=== PATIENT | female | born 1940 | race Caucasian/White ===

== ENCOUNTER 2018-11-25 11:15 | Emergency (ER) | payer OTHER ==
[~2018-11-25] VITALS: Ht 165.1 cm; Wt 68.0 kg
[2018-11-25] MEDS ORDERED: LEVOTHYROXINE88 MCG PO (11:41)
[2018-11-25] MEDS ORDERED: COZAAR25 MG PO (11:41)
[2018-11-25] MEDS ORDERED: SIMVASTATIN20 MG PO (11:41)
[2018-11-25] MEDS ORDERED: METOPROLOL SUCC25 MG PO (11:42)
[2018-11-25] MEDS ORDERED: ASPIRIN325 MG PO (11:42)
[2018-11-25] MEDS ORDERED: CALCIUM 600 +1 EACH PO (11:43)
[2018-11-25] MEDS ORDERED: VITAMIN D1000 UNIT PO (11:43)
[2018-11-25] MEDS ORDERED: CENTRUM SILVER1 EAC3 PO (11:43)
[2018-11-25] MEDS ORDERED: EVENING PRIMR1000 MG PO (11:43)
[2018-11-25] MEDS ORDERED: FISH OIL 1,0001 EAC2 NG (11:44)
[2018-11-25] MEDS ORDERED: MELATONIN1 MG PO (11:44)
[2018-11-25] MEDS ORDERED: PROBIOTIC1 EAC4 PO (11:44)
[2018-11-25] MEDS ORDERED: COCONUT OIL100 GM MISC (11:45)
[2018-11-25] MEDS ORDERED: MAGNESIUM CITR125 MG PO (11:45)
[2018-11-25] MEDS ORDERED: CURCUMIN1 GM MISC (11:45)
[2018-11-25] MEDS ORDERED: VITAMIN K240 MCG PO (11:46)
[2018-11-25] MEDS ORDERED: B COMPLEX1 EACH PO (11:46)
[2018-11-25] MEDS ORDERED: K-TAB ER20 MEQ PO (11:46)
[2018-11-25] MEDS ORDERED: COZAAR50 MG PO (13:09)
--- NOTE | 2018-11-26 16:54 | EKG ---
[facility] [address] [place], [place] [address] Signed Atrial fibrillation with premature ventricular or aberrantly conducted complexes Low voltage QRS Cannot rule out Anteroseptal infarct , age undetermined Abnormal ECG No previous ECGs available Confirmed by HAVEN MARROQUIN DO ([id number]) on 11/26/2018 4:54:31 PM Electronically Signed By: HAVEN MARROQUIN DO 11/26/18 1654 PATIENT NAME: BENITEZMIKE Electrocardiogram DATE OF : 44 PHYSICIAN: HAVEN MARROQUIN DO REPORT #: [id number] REPORT IS CONFIDENTIAL AND NOT TO BE RELEASED WITHOUT AUTHORIZATION
== END 2018-11-25 13:18 | disposition home or self-care (01) ==
LOC: ED 11:15
DX: I10 Essential (primary) hypertension (principal); K21.9 Gastro-esophageal reflux disease without esophagitis; I48.91 Unspecified atrial fibrillation; Z88.5 Allergy status to narcotic agent; Z88.8 Allergy status to other drugs, medicaments and biological substances; Z79.899 Other long term (current) drug therapy; Z79.82 Long term (current) use of aspirin
CPT/HCPCS: 71045; 80053; 84484; 85025; 93005; 93010; 99284-25

== ENCOUNTER 2022-10-10 04:11 | Emergency (ER) | payer MEDICARE, OTHER ==
[~2022-10-10] VITALS: Ht 165.1 cm; Wt 74.8 kg
[~2022-10-10 04:11] MED LIST: ASPIRIN325 MG PO; B COMPLEX1 EACH PO; CALCIUM 600 +1 EACH PO; CENTRUM SILVER1 EAC3 PO; COCONUT OIL100 GM MISC; COZAAR25 MG PO; COZAAR50 MG PO; CURCUMIN1 GM MISC; ELIQUIS5 MG PO; EVENING PRIMR1000 MG PO; FISH OIL 1,0001 EAC2 NG; K-TAB ER20 MEQ PO; LEVOTHYROXINE88 MCG PO; MAGNESIUM CITR125 MG PO; MELATONIN1 MG PO; METOPROLOL SUCC25 MG PO; PROBIOTIC1 EAC4 PO; SIMVASTATIN20 MG PO; VITAMIN D1000 UNIT PO; VITAMIN K240 MCG PO
== END 2022-10-10 05:32 | disposition home or self-care (01) ==
LOC: ED 04:11
DX: K91.840 Postprocedural hemorrhage of a digestive system organ or structure following a digestive system procedure (principal); I10 Essential (primary) hypertension; I48.91 Unspecified atrial fibrillation; E78.00 Pure hypercholesterolemia, unspecified; Z88.8 Allergy status to other drugs, medicaments and biological substances; Z88.5 Allergy status to narcotic agent; Z79.899 Other long term (current) drug therapy
CPT/HCPCS: 36415; 85025; 96374; 99283-25

== ENCOUNTER 2023-02-20 14:38 | Inpatient (IN) | payer MEDICARE, OTHER ==
[~2023-02-20] VITALS: Ht 165.1 cm; Wt 77.3 kg
--- NOTE | ~2023-02-20 | OR ---
[facility] [address], [place] [address] Draft DATE OF OPERATION: 02/28/2023 SURGEON: Jacqueline Sanderson MD JEWEL GAUGER: Maxim Winters D.O. PREOPERATIVE DIAGNOSIS: Vaginal vault prolapse. POSTOPERATIVE DIAGNOSIS: Vaginal vault prolapse. PROCEDURES: 1. Colpocleisis. 2. Cystoscopy. ANESTHESIA: Spinal with IV sedation. ESTIMATED BLOOD LOSS: 150 mL. DRAINS: Swanson catheter. INDICATIONS AND FINDINGS: The patient is an 82-year-old female, status post prior hysterectomy, who has developed vault prolapse. At this point, she desired colpocleisis. She is not sexually active and has no plans for this. At the time of surgery, she had a normal complete vault prolapse with the vault presenting at the introitus. DESCRIPTION OF PROCEDURE: The patient was prepped and draped in the dorsal lithotomy position. A weighted speculum was placed and a cheryl was made with the cautery at the bladder neck anteriorly such that no dissection would occur beyond that. A midline incision was made over the anterior vagina and the vaginal mucosa was from the underlying tissue with a combination of blunt and sharp dissection as far laterally as possible. The vaginal mucosa was then excised as far laterally as possible. The remaining pubo-vesicle fascia was closed with interrupted sutures of 0-Vicryl. Bleeding points were controlled with PATIENT NAME: MIKE BENITEZ OPERATIVE REPORT DATE OF : 44 REPORT #: [id number] PHYSICIAN: JACQUELINE SANDERSON MD PCP: VERONICA MAXWELL MD REPORT IS CONFIDENTIAL AND NOT TO BE RELEASED WITHOUT AUTHORIZATION [facility] [address], [place] [address] Draft [id number] sutures of 2-0 chromic. Following this, attention was directed posteriorly. A triangle of tissue was removed from the perineal body. The vaginal mucosa was then incised and undermined in the midline from the perineum to the vaginal apex. The vaginal mucosa was from the underlying tissue with a combination of blunt and sharp dissection as far laterally as possible. Following this, the vaginal mucosa was excised other than the band at the introitus. Bleeding points were controlled with [id number] sutures of the 2-0 chromic. The rectocele itself was reduced with interrupted sutures of 0-Vicryl and whatever remained of the perirectal fascial type tissue. Following this, it appeared that the great majority of the vaginal mucosa had been excised. The raw area was sprayed with Tisseel to aid in hemostasis. The vagina was then serially closed with purse-string sutures bringing the anterior to the posterior vagina, this was done to the introitus. Following this, the remaining vaginal mucosa both anteriorly and posteriorly was sewn together with a running suture of 2-0 Vicryl. The posterior fourchette was recreated with a running suture of 2-0 Vicryl. The posterior perineum had further dissection done on each side to allow for longer perineum. This was brought together with interrupted sutures of 0-Vicryl. The skin of the perineum was closed with subcuticular sutures of 2-0 Vicryl. Following this, cystoscopy was done. There was no evidence of any bladder injury. Fluorescein had been given and there was free flow of urine from each of the ureteral orifices. Rectal examination was also done at the conclusion of the procedure. Swanson catheter was replaced after draining the bladder, and she was taken to the recovery room in good condition. All sponge and needle counts were correct. Jacqueline Sanderson MD PJMatt/MODL /[id number] Copies: ~ PATIENT NAME: MIKE BENITEZ OPERATIVE REPORT DATE OF : 44 REPORT #: [id number] PHYSICIAN: JACQUELINE SANDERSON MD PCP: VERONICA MAXWELL MD REPORT IS CONFIDENTIAL AND NOT TO BE RELEASED WITHOUT AUTHORIZATION
--- OUTSIDE RECORDS SUMMARY | ~2023-02-20 | XMS | Continuity of Care Document ---
Demographics + + + | Address | [address] | | | [place] [address] | + + + | Preferred Language | Unknown | + + + | Marital Status | | + + + | Lutheran Affiliation | Unknown | + + + | Race | White | + + + | Ethnic Group | Not or | + + + Author + + + | Author | [facility] | + + + | Organization | [facility] | + + + | Address | [address] | | | [place] [address] | + + + | Phone | | + + + Care Team Providers + + + + | Care Managing Principal Name | Role | Phone | + + + + Unavailable | Unavailable | + + + + Unavailable | Unavailable | + + + + Unavailable | Unavailable | + + + + Allergies and Intolerances + + + + + + | date | description | facility | reaction | severity | + + + + + + | (no date) | Celecoxib | [facility] | (no reaction) | (no severity) | | [facility] | | | + + + + + + | (no date) | Celecoxib | [facility] | (no reaction) | (no severity) | | [facility] | | | + + + + + + | (no date) | Codeine | [facility] | (no reaction) | (no severity) | | [facility] | | | + + + + + + | (no date) | Procaine | [facility] | (no reaction) | (no severity) | | [facility] | | | + + + + + + | (no date) | Codeine | [facility] | (no reaction) | (no severity) | | [facility] | | | + + + + + + | (no date) | Vomiting | [facility] | (no reaction) | (no severity) | | [facility] | | | + + + + + + | (no date) | Procaine | [facility] | (no reaction) | (no severity) | | [facility] | | | + + + + + + | (no date) | Procaine | [facility] | (no reaction) | (no severity) | | | [facility] | | | + + + + + + | (no date) | codeine | [facility] | (no reaction) | (no severity) | + + + + + + | (no date) | procaine | [facility] | (no reaction) | (no severity) | + + + + + + | (no date) | celecoxib | [facility] | (no reaction) | (no severity) | + + + + + + | (no date) | Celecoxib | [facility] | (no reaction) | (no severity) | | [facility] | | | + + + + + + | (no date) | Codeine | [facility] | (no reaction) | (no severity) | | | [facility] | | | + + + + + + Encounters No information. Functional Status No information. Immunizations No information. Medications + + + + | date | description | facility | + + + + | 2022-08-17 00:00 | APIXABAN | [facility] | + + + + | 2022-10-10 00:00 | APIXABAN | [facility] | + + + + | 2022-08-17 00:00 | POTASSIUM CHLORIDE | [facility] | + + + + | 2022-10-10 00:00 | POTASSIUM CHLORIDE | [facility] | + + + + | 2022-08-17 00:00 | Magnesium Citrate | [facility] | + + + + | 2022-10-10 00:00 | Magnesium Citrate | [facility] | + + + + | 2022-08-17 00:00 | CHOLECALCIFEROL (VITAMIN | [facility] | | | D3) | | + + + + | 2022-10-10 00:00 | CHOLECALCIFEROL (VITAMIN | [facility] | | | D3) | | + + + + | 2022-08-17 00:00 | SIMVASTATIN | [facility] | + + + + | 2022-10-10 00:00 | SIMVASTATIN | [facility] | + + + + | 2022-08-17 00:00 | CALCIUM CARBONATE/VITAMIN | [facility] | | | D3 | | + + + + | 2022-10-10 00:00 | CALCIUM CARBONATE/VITAMIN | [facility] | | | D3 | | + + + + | 2022-08-17 00:00 | METOPROLOL SUCCINATE | [facility] | + + + + | 2022-10-10 00:00 | METOPROLOL SUCCINATE | [facility] | + + + + | 2022-08-17 00:00 | LEVOTHYROXINE SODIUM | [facility] | + + + + | 2022-10-10 00:00 | LEVOTHYROXINE SODIUM | [facility] | + + + + | 2018-11-25 00:00 | LOSARTAN POTASSIUM | [facility] | + + + + | 2018-11-25 00:00 | LOSARTAN POTASSIUM | [facility] | + + + + Problems + + + + | date | description | facility | + + + + | 2022-08-17 00:00 | Hypertension | [facility] | + + + + | 2022-08-17 00:00 | Hypertension | [facility] | + + + + | 2022-08-17 00:00 | Episode of confusion | [facility] | + + + + | 2022-08-17 00:00 | Episode of confusion | [facility] | + + + + | 2022-08-17 18:05 | Essential (primary) | [facility] | | | hypertension | | + + + + | 2022-08-17 18:05 | UNSPECIFIED ATRIAL | [facility] | | | FIBRILLATION | | + + + + | 2022-08-17 18:05 | DISORIENTATION, | [facility] | | | UNSPECIFIED | | + + + + | 2022-08-17 18:05 | Dizziness and giddiness | [facility] | + + + + | 2022-08-17 18:05 | SENIOR LIVING (CURRENT) USE OF | [facility] | | | ANTICOAGULANTS | | + + + + | 2022-08-17 18:05 | 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) | [facility] | | | DRUG THERAPY | | + + + + | 2022-08-17 18:05 | ALLERGY STATUS TO NARCOTIC | [facility] | | | AGENT STATUS | | + + + + | 2022-08-17 18:05 | ALLERGY STATUS TO OTH | [facility] | | | DRUG/MEDS/BIOL SUBST STATUS | | | | | | + + + + | 2022-10-10 00:00 | Surgical wound hemorrhage | [facility] | | | after dental procedure | | + + + + | 2022-10-10 04:12 | PURE HYPERCHOLESTEROLEMIA, | [facility] | | | UNSPECIFIED | | + + + + | 2022-10-10 04:12 | Essential (primary) | [facility] | | | hypertension | | + + + + | 2022-10-10 04:12 | UNSPECIFIED ATRIAL | [facility] | | | FIBRILLATION | | + + + + | 2022-10-10 04:12 | OTHER SPECIFIED DISORDERS | [facility] | | | OF TEETH AND SUPPORTING | | | | STRUCTURES | | + + + + | 2022-10-10 04:12 | POSTPROC HEMOR OF A DGSTV | [facility] | | | SYS ORG FOL A DGSTV SYS | | + + + + | 2022-10-10 04:12 | OTHER SENIOR LIVING (CURRENT) | [facility] | | | DRUG THERAPY | | + + + + | 2022-10-10 04:12 | ALLERGY STATUS TO NARCOTIC | [facility] | | | AGENT STATUS | | + + + + | 2022-10-10 04:12 | ALLERGY STATUS TO OTH | [facility] | | | DRUG/MEDS/BIOL SUBST STATUS | | | | | | + + + + | 2022-12-26 10:10 | ENCNTR SCREEN MAMMOGRAM | [facility] | | | FOR MALIGNANT NEOPLASM OF | | | | BREAST | | + + + + | 2023-02-21 16:05 | PROLAPSE OF VAGINAL VAULT | [facility] | | | AFTER HYSTERECTOMY | | + + + + | 2023-02-28 07:30 | MIXED INCONTINENCE | [facility] | + + + + | 2023-02-28 07:30 | PROLAPSE OF VAGINAL VAULT | [facility] | | | AFTER HYSTEREC | | + + + + | 2023-02-28 07:30 | URGENCY OF URINATION | [facility] | + + + + Procedures No information. Results/Labs +--------+--------+ +---------+--------+---------+ | test | date | facility | value | unit | notes | +--------+--------+ +---------+--------+---------+ + + | Result panel 1 | + + + + + +-------+ + + | | 2022-08-17 | [facility] | 6.9 | (missing) | (missing) | | (unavailable | 18:12:08 [facility] | | | | + + + +-------+ + + + + | Result panel 2 | + + + + + +--------+ + + | | 2022-08-17 | [facility] | 4.22 | (missing) | (missing) | | (unavailable | 18:12:08 [facility] | | | | + + + +--------+ + + + + | Result panel 3 | + + + + + +--------+ + + | | 2022-08-17 | [facility] | 13.8 | (missing) | (missing) | | (unavailable | 18:12:08 [facility] | | | | + + + +--------+ + + + + | Result panel 4 | + + + + + +--------+ + + | | 2022-08-17 | [facility] | 41.2 | (missing) | (missing) | | (unavailable | 18:12:08 [facility] | | | | + + + +--------+ + + + + | Result panel 5 | + + + + + +--------+ + + | | 2022-08-17 | [facility] | 97.8 | (missing) | (missing) | | (unavailable | 18:12:08 [facility] | | | | + + + +--------+ + + + + | Result panel 6 | + + + + + +--------+ + + | | 2022-08-17 | [facility] | 32.6 | (missing) | (missing) | | (unavailable | 18:12:08 [facility] | | | | + + + +--------+ + + + + | Result panel 7 | + + + + + +--------+ + + | | 2022-08-17 | [facility] | 33.4 | (missing) | (missing) | | (unavailable | 18:12:08 [facility] | | | | + + + +--------+ + + + + | Result panel 8 | + + + + + +--------+ + + | | 2022-08-17 | [facility] | 13.0 | (missing) | (missing) | | (unavailable | 18:12:08 [facility] | | | | + + + +--------+ + + + + | Result panel 9 | + + + + + +-------+ + + | | 2022-08-17 | [facility] | 162 | (missing) | (missing) | | (unavailable | [facility]:12:08 [facility] | | | | + + + +-------+ + + + + | Result panel 10 | + + + + + +--------+ + + | | 2022-08-17 | [facility] | 63.1 | (missing) | (missing) | | (unavailable | 18:12:08 [facility] | | | | + + + +--------+ + + + + | Result panel 11 | + + + + + +--------+ + + | | 2022-08-17 | [facility] | 22.0 | (missing) | (missing) | | (unavailable | 18:12:08 [facility] | | | | + + + +--------+ + + + + | Result panel 12 | + + + + + +--------+ + + | | 2022-08-17 | [facility] | 10.5 | (missing) | (missing) | | (unavailable | 18:12:08 [facility] | | | | + + + +--------+ + + + + | Result panel 13 | + + + + + +-------+ + + | | 2022-08-17 | [facility] | 3.2 | (missing) | (missing) | | (unavailable | 18:12:08 [facility] | | | | + + + +-------+ + + + + | Result panel 14 | + + + + + +-------+ + + | | 2022-08-17 | [facility] | 1.2 | (missing) | (missing) | | (unavailable | 18:12:08 [facility] | | | | + + + +-------+ + + + + | Result panel 15 | + + + + + +--------+ + + | | 2022-08-17 | [facility] | 15.5 | (missing) | (missing) | | (unavailable | 18:12:08 [facility] | | | | + + + +--------+ + + + + | Result panel 16 | + + + + + +--------+ + + | | 2022-08-17 | [facility] | 1.29 | (missing) | (missing) | | (unavailable | 18:12:08 [facility] | | | | + + + +--------+ + + + + | Result panel 17 | + + + + + +-------+---------+ + | | 2022-08-17 | [facility] | 100 | mg/dL | (missing) | | (unavailable | 18:12:08 [facility] | | | | + + + +-------+---------+ + + + | Result panel 18 | + + + + + +------+---------+ + | | 2022-08-17 | [facility] | 20 | mg/dL | (missing) | | (unavailable | 18:12:08 [facility] | | | | + + + +------+---------+ + + + | Result panel 19 | + + + + + +--------+---------+ + | | 2022-08-17 | [facility] | 1.10 | mg/dL | (missing) | | (unavailable | 18:12:08 [facility] | | | | + + + +--------+---------+ + + + | Result panel 20 | + + + + + +------+ + + | | 2022-08-17 | [facility] | 51 | (missing) | (missing) | | (unavailable | 18::08 | [facility] | | | | + + + +------+ + + + + | Result panel 21 | + + + + + +---------+ + + | | 2022-08-17 | [facility] | 18.18 | (missing) | (missing) | | (unavailable | 18:12:08 [facility] | | | | + + + +---------+ + + + + | Result panel 22 | + + + + + +-------+ + + | | 2022-08-17 | [facility] | 130 | (missing) | (missing) | | (unavailable | 18:12:08 [facility] | | | | + + + +-------+ + + + + | Result panel 23 | + + + + + +-------+ + + | | 2022-08-17 | [facility] | 4.4 | (missing) | (missing) | | (unavailable | 18:12:08 [facility] | | | | + + + +-------+ + + + + | Result panel 24 | + + + + + +------+ + + | | 2022-08-17 | [facility] | 96 | (missing) | (missing) | | (unavailable | 18:12:08 [facility] | | | | + + + +------+ + + + + | Result panel 25 | + + + + + +------+ + + | | 2022-08-17 | [facility] | 29 | (missing) | (missing) | | (unavailable | 18:12:08 [facility] | | | | + + + +------+ + + + + | Result panel 26 | + + + + + +-------+ + + | | 2022-08-17 | [facility] | 9.4 | (missing) | (missing) | | (unavailable | 18:12:08 [facility] | | | | + + + +-------+ + + + + | Result panel 27 | + + + + + +-------+---------+ + | | 2022-08-17 | [facility] | 9.7 | mg/dL | (missing) | | (unavailable | 18:12:08 [facility] | | | | + + + +-------+---------+ + + + | Result panel 28 | + + + + + +-------+ + + | | 2022-08-17 | [facility] | 7.5 | (missing) | (missing) | | (unavailable | 18:12:08 [facility] | | | | + + + +-------+ + + + + | Result panel 29 | + + + + + +-------+ + + | | 2022-08-17 | [facility] | 4.1 | (missing) | (missing) | | (unavailable | 18:12:08 [facility] | | | | + + + +-------+ + + + + | Result panel 30 | + + + + + +-------+ + + | | 2022-08-17 | [facility] | 3.4 | (missing) | (missing) | | (unavailable | 18:12:08 [facility] | | | | + + + +-------+ + + + + | Result panel 31 | + + + + + +--------+ + + | | 2022-08-17 | [facility] | 1.21 | (missing) | (missing) | | (unavailable | 18::08 | [facility] | | | | + + + +--------+ + + + + | Result panel 32 | + + + + + +-------+ + + | | 2022-08-17 | [facility] | 1.6 | (missing) | (missing) | | (unavailable | 18:12:08 [facility] | | | | + + + +-------+ + + + + | Result panel 33 | + + + + + +------+ + + | | 2022-08-17 | [facility] | 40 | (missing) | (missing) | | (unavailable | 18:12:08 [facility] | | | | + + + +------+ + + + + | Result panel 34 | + + + + + +------+ + + | | 2022-08-17 | [facility] | 43 | (missing) | (missing) | | (unavailable | 18:12:08 [facility] | | | | + + + +------+ + + + + | Result panel 35 | + + + + + +-------+ + + | | 2022-08-17 | [facility] | 116 | (missing) | (missing) | | (unavailable | 18:12:08 [facility] | | | | + + + +-------+ + + + + | Result panel 36 | + + + + + + + + + | | 2022-08-17 | [facility] | YELLOW | (missing) | (missing) | | (unavailable | 18:56:08 [facility] | | | | + + + + + + + + + | Result panel 37 | + + + + + +---------+ + + | | 2022-08-17 | [facility] | CLEAR | (missing) | (missing) | | (unavailable | 18:56:08 [facility] | | | | + + + +---------+ + + + + | Result panel 38 | + + + + + + + + + | | 2022-08-17 | [facility] | NEGATIVE | (missing) | (missing) | | (unavailable | 18:56:08 [facility] | | | | + + + + + + + + + | Result panel 39 | + + + + + + + + + | | 2022-08-17 | [facility] | NEGATIVE | (missing) | (missing) | | (unavailable | 18[facility]56:08 [facility] | | | | + + + + + + + + + | Result panel 40 | + + + + + + + + + | | 2022-08-17 | [facility] | NEGATIVE | (missing) | (missing) | | (unavailable | 18[facility]56:08 [facility] | | | | + + + + + + + + + | Result panel 41 | + + + + + +---------+ + + | | 2022-08-17 | [facility] | 1.015 | (missing) | (missing) | | (unavailable | 18:56:08 [facility] | | | | + + + +---------+ + + + + | Result panel 42 | + + + + + + + + + | | 2022-08-17 | [facility] | NEGATIVE | (missing) | (missing) | | (unavailable | 18:56:08 [facility] | | | | + + + + + + + + + | Result panel 43 | + + + + + +-------+ + + | | 2022-08-17 | [facility] | 6.0 | (missing) | (missing) | | (unavailable | 18:56:08 [facility] | | | | + + + +-------+ + + + + | Result panel 44 | + + + + + + + + + | | 2022-08-17 | [facility] | NEGATIVE | (missing) | (missing) | | (unavailable | 18:56:08 [facility] | | | | + + + + + + + + + | Result panel 45 | + + + + + + + + + | | 2022-08-17 | [facility] | NORMAL | (missing) | (missing) | | (unavailable | 18:56:08 [facility] | | | | + + + + + + + + + | Result panel 46 | + + + + + + + + + | | 2022-08-17 | [facility] | NEGATIVE | (missing) | (missing) | | (unavailable | 18:56:08 [facility] | | | | + + + + + + + + + | Result panel 47 | + + + + + +---------+ + + | | 2022-08-17 | [facility] | TRACE | (missing) | (missing) | | (unavailable | 18:56:08 [facility] | | | | + + + +---------+ + + + + | Result panel 48 | + + + + + +-------+ + + | | 2022-08-17 | [facility] | 0-1 | (missing) | (missing) | | (unavailable | 18:56:08 [facility] | | | | + + + +-------+ + + + + | Result panel 49 | + + + + + +-------+ + + | | 2022-08-17 | [facility] | 4-6 | (missing) | (missing) | | (unavailable | 18:56:08 [facility] | | | | + + + +-------+ + + + + | Result panel 50 | + + + + + +-----+ + + | | 2022-08-17 | [facility] | 0 | (missing) | (missing) | | (unavailable | 18:56:08 [facility] | | | | + + + +-----+ + + + + | Result panel 51 | + + + + + +------+ + + | | 2022-08-17 | [facility] | No | (missing) | (missing) | | (unavailable | 18:56:08 [facility] | | | | + + + +------+ + + + + | Result panel 52 | + + + + + + + + + | | 2022-08-17 | [facility] | CLEAN CATCH | (missing) | (missing) | | (unavailable | 18:56:08 [facility] | | | | + + + + + + + + + | Result panel 53 | + + + + + +-------+ + + | | 2022-10-10 | [facility] | 6.1 | (missing) | (missing) | | (unavailable | 04:26:08 [facility] | | | | + + + +-------+ + + + + | Result panel 54 | + + + + + +--------+ + + | | 2022-10-10 | [facility] | 63.5 | (missing) | (missing) | | (unavailable | 04:26:08 [facility] | | | | + + + +--------+ + + + + | Result panel 55 | + + + + + +--------+ + + | | 2022-10-10 | [facility] | 21.7 | (missing) | (missing) | | (unavailable | 04:26:08 [facility] | | | | + + + +--------+ + + + + | Result panel 56 | + + + + + +-------+ + + | | 2022-10-10 | [facility] | 8.7 | (missing) | (missing) | | (unavailable | 04:26:08 [facility] | | | | + + + +-------+ + + + + | Result panel 57 | + + + + + +-------+ + + | | 2022-10-10 | [facility] | 5.3 | (missing) | (missing) | | (unavailable | 04:26:08 [facility] | | | | + + + +-------+ + + + + | Result panel 58 | + + + + + +-------+ + + | | 2022-10-10 | [facility] | 0.8 | (missing) | (missing) | | (unavailable | 04:26:08 [facility] | | | | + + + +-------+ + + + + | Result panel 59 | + + + + + +--------+ + + | | 2022-10-10 | [facility] | 4.16 | (missing) | (missing) | | (unavailable | 04:26:08 [facility] | | | | + + + +--------+ + + + + | Result panel 60 | + + + + + +--------+ + + | | 2022-10-10 | [facility] | 13.7 | (missing) | (missing) | | (unavailable | 04:26:08 [facility] | | | | + + + +--------+ + + + + | Result panel 61 | + + + + + +--------+ + + | | 2022-10-10 | [facility] | 40.3 | (missing) | (missing) | | (unavailable | 04:26:08 [facility] | | | | + + + +--------+ + + + + | Result panel 62 | + + + + + +--------+ + + | | 2022-10-10 | [facility] | 96.8 | (missing) | (missing) | | (unavailable | 04:26:08 [facility] | | | | + + + +--------+ + + + + | Result panel 63 | + + + + + +--------+ + + | | 2022-10-10 | [facility] | 33.0 | (missing) | (missing) | | (unavailable | 04:26:08 [facility] | | | | + + + +--------+ + + + + | Result panel 64 | + + + + + +--------+ + + | | 2022-10-10 | [facility] | 34.1 | (missing) | (missing) | | (unavailable | 04:26:08 [facility] | | | | + + + +--------+ + + + + | Result panel 65 | + + + + + +--------+ + + | | 2022-10-10 | [facility] | 13.4 | (missing) | (missing) | | (unavailable | 04[facility]26:08 [facility] | | | | + + + +--------+ + + + + | Result panel 66 | + + + + + +-------+ + + | | 2022-10-10 | [facility] | 183 | (missing) | (missing) | | (unavailable | 04[facility]26:08 [facility] | | | | + + + +-------+ + + Social History No information. Vital Signs + + + +---------+ | date | measurement | value | units | + + + +---------+ | 2022-08-17 00:00 | BMI | 26.6 | kg/m2 | + + + +---------+ | 2022-08-17 00:00 | BP_diastolic | 97 | mmHg | + + + +---------+ | 2022-08-17 00:00 | BP_systolic | 180 | mmHg | + + + +---------+ | 2022-08-17 00:00 | heart_rate | 64 | /min | + + + +---------+ | 2022-08-17 00:00 | height_metric | 165.1 | cm | + + + +---------+ | 2022-08-17 00:00 | height_standard | 65 | in | + + + +---------+ | 2022-08-17 00:00 | o2_saturation | 97 | % | + + + +---------+ | 2022-08-17 00:00 | respiration_rate | 17 | /min | + + + +---------+ | 2022-08-17 00:00 | temperature_metric | 36.5 | C | | | | | | + + + +---------+ | 2022-08-17 00:00 | | 97.7 | F | | | temperature_standar | | | | | d | | | + + + +---------+ | 2022-08-17 00:00 | weight_metric | 72.57 | kg | + + + +---------+ | 2022-08-17 00:00 | weight_standard | 159.99 | lb | + + + +---------+ | 2022-08-17 00:00 | weight_standard | 160 | lb | + + + +---------+ | 2022-10-10 00:00 | BMI | 27.5 | kg/m2 | + + + +---------+ | 2022-10-10 00:00 | BP_diastolic | 76 | mmHg | + + + +---------+ | 2022-10-10 00:00 | BP_systolic | 158 | mmHg | + + + +---------+ | 2022-10-10 00:00 | heart_rate | 60 | /min | + + + +---------+ | 2022-10-10 00:00 | height_metric | 165.1 | cm | + + + +---------+ | 2022-10-10 00:00 | height_standard | 65 | in | + + + +---------+ | 2022-10-10 00:00 | o2_saturation | 98 | % | + + + +---------+ | 2022-10-10 00:00 | respiration_rate | 20 | /min | + + + +---------+ | 2022-10-10 00:00 | temperature_metric | 36.22 | C | | | | | | + + + +---------+ | 2022-10-10 00:00 | | 97.2 | F | | | temperature_standar | | | | | d | | | + + + +---------+ | 2022-10-10 00:00 | weight_metric | 74.84 | kg | + + + +---------+ | 2022-10-10 00:00 | weight_standard | 164.99 | lb | + + + +---------+ | 2022-10-10 00:00 | weight_standard | 165 | lb | + + + +---------+"
[~2023-02-20 14:38] MED LIST changes: +APETEX LIQ790 MG/15 PO; -B COMPLEX1 EACH PO; -CALCIUM 600 +1 EACH PO; +CALCIUM CARBON600 M1 PO; -CURCUMIN1 GM MISC; +CURCUMIN1 GM PO; -FISH OIL 1,0001 EAC2 NG; +FISH OIL 1,0001 EAC5 PO; -VITAMIN D1000 UNIT PO; +VITAMIN D325 MCG PO
[2023-02-21 16:46] VITALS: BP 167/82
[2023-02-21] MEDS ORDERED: AMLODIPINE BES2.5 MG PO (16:46)
[2023-02-28] VITALS (7 sets, daily range): BP systolic 112–148; BP diastolic 43–76
--- NOTE | 2023-02-28 07:58 | NUR ---
PATIENT EYEGLASSES PLACED IN EYEGLASS CASE WITH PATIENT STICKER ATTACHED BEFORE LEAVING DAY SURGERY. CASE PLACED IN PATIENT'S PURSE AND LEFT IN DAY SURGERY ROOM 12 WITH PATIENT'S OTHER BELONGINGS.
--- NOTE | 2023-02-28 10:22 | NUR ---
02/28/23 1022 Trisha Brady 1000 PT ARRIVED IN PACU AWAKE WITH NO C/O'S. EDAWRDS CATHETER IN PLACE WITH NEON YELLOW URINE PRESENT. 1010 SATS DROPPED TO 88% ON RA. ENCOURAGE COUGH, DEEP BREATHING WITH NO CHANGE. O2 @ 2L VIA NC PLACED. SATS 95%. 1020 PT VISITING WITH STAFF. MOVING FEET.
--- NOTE | 2023-02-28 10:38 | NUR ---
PATIENT BROUGHT TO MED SURG FROM PACU. PATIENT CURRENTLY AWAKE, A&O, PAIN CONTROLLED AT 08/22. IS PROVIDER. PATIENT IS BY HERSELF. EDWARDS IN AND BRIGHT YELLOW OUTPUT. PATIENT HAS 20G IN LEFT HAND SL. PATIENT HAS SCDS ON AND RUNNING, TABLE OVER BY PATIENT, WITH TV REMOTE WATER AND KLENEX. PATIENT ON REGULAR DIET AND GIVEN VANILLA PUDDING. VITALS TAKEN. PT WOULD REALLY LIKE TO TRY TO CONTROL PAIN WITH TYLENOL ONLY.
--- NOTE | 2023-02-28 11:42 | NUR ---
PATIENT RESTING IN BED BUT WAKES UP WHEN THIS NURSE WALKS IN. PAIN STILL CONTROLLED AT 08/22. PATIENT STATES SHE IS COMFORTABLE, WARM, STOMACH IS TOLERATING PUDDING WELL. VITALS TAKEN. DENIES CARES AT THIS TIME. CALL LIGHT WITHIN REACH. BED IN LOW POSITION.
--- NOTE | 2023-02-28 12:15 | NUR ---
PATIENT HAS COUSIN INTO VISIT. WARM BLANKET GIVEN. PATIENT IS READY TO EAT LUNCH. DENIES INCREASE IN PAIN. PILLOW PLACED UNDER BOTH KNEES. DENIES NAUSEA.
--- NOTE | 2023-02-28 14:11 | NUR ---
PATIENT IS VISITING WITH FRIENDS, SURGERY SCHEDULING COORDINATOR WILL RETURN LATER TO ASSESS THE PATIENT'S DISCHARGE NEEDS.
--- NOTE | 2023-02-28 14:26 | NUR ---
PATIENT SITTING UP IN BED. SHE WAS ABLE TO EAT LUNCH AND DOING WELL. PATIENT GIVEN SCHEDULED TYLENOL. CASE MANAGEMENT INTO TALK TO PATIENT.
--- NOTE | 2023-02-28 14:51 | NUR ---
SPOKE TO PATIENT ABOUT THE DISCHARGE PLAN. PATIENT WANTS TO DISCHARGE HOME TO HER DOUBLE-WIDE TRAILOR. PATIENT HAS A SUPPORTIVE FAMILY AND FRIENDS TO HELP NEEDED. PATIENT DOES NOT HAVE ANY DME. PATIENT IS ABLE TO DO HER OWN ADLS.PATIENT DRIVES HER OWN CAR AND CAN AFFORD FOOD AND HOUSING. PATIENT FEELS SAFE HOME ALONE IN HER TRAILOR.PATIENT DOES NOT WANT SNF OR SENIOR LIVING PLACEMENT. PATIENT DOES NOT NEED CASE MANAGMENT AT THIS TIME. CM WILL MONITOR THE PATIENT'S DISCHARGE PLAN AND WILL BE AVAIABLE TO HELP WITH NEEDED CHANGES.
[2023-02-28] MEDS ORDERED: LEVOTHYROXINE75 MCG PO (16:01)
[2023-02-28] MEDS ORDERED: METOPROLOL TART25 MG PO (16:02)
[2023-02-28] MEDS ORDERED: LOSARTAN POTASS50 MG PO (16:03)
--- NOTE | 2023-02-28 17:09 | NUR ---
PATIENT SITTING UP AND EATING DINNER. DENIES ANY PAIN AT THIS TIME. PATIENT IS HAPPY AND DOING WELL. PATIENT HAS HAD VISITORS OFF AND ON THROUGHOUT THE DAY. CALL LIGHT WITHIN REACH. PATIENT WOULD LIKE TO KNOW IF SHE CAN TAKE HER LACTAID SHE WOULD LIKE ICE CREAM WITH DINNER. DENIES ANY OTHER CARES AT THIS TIME.
--- NOTE | 2023-02-28 18:35 | NUR ---
PATIENT SITTING UP IN BED VISITING WITH FAMILY. PATIENT GIVEN FRESH WATER. DENIES PAIN AT THIS TIME. EDWARDS WORKING, NO DISCOMFORT. CALL LIGHT WITHIN REACH. PATIENT THANKFUL FOR HER CARE TODAY.
--- NOTE | 2023-02-28 19:40 | NUR ---
Pt is resting, calm , minimal pain, ontiveros in place. No other complains.
[2023-03-01 02:22] VITALS: BP 107/50
--- NOTE | 2023-03-01 06:22 | NUR ---
Ambulated with pt around the unit. Removed rama, pt requested stool softners early this am as she dint want to take it last night.
--- NOTE | 2023-03-01 06:22 | NUR ---
ENTERED PT ROOM TO ASSIST SILVIA RN, WITH PT NEEDS. PT AMBULATED WELL IN HALLWAY. WAS PRESENT DURING EDWARDS REMOVAL. SILVIA IN TO DO MEDICATION ADMINISTRATION.
[2023-03-01 06:23] VITALS: BP 139/62
--- NOTE | 2023-03-01 06:28 | NUR ---
Pt notified me that pt passed gas.
--- NOTE | 2023-03-01 07:31 | NUR ---
REPORT RECEIVED FROM ROHAN VEGA. PT RESTING IN BED, AWAKE AND ALERT. PT REPORTS / PAIN THAT IS WELL CONTROLLED. PT REPORTS SHE HAS HAD A BOWEL MOVEMENT BUT HAS NOT YET VOIDED. PT DRINKING FLUIDS. PT UPDATED ON PLAN OF CARE AND STATES HER QUESTIONS HAVE BEEN ANSWERED. NO ADDITIONAL REQUESTS OR COMPLAINTS. CALL LIGHT WITHIN REACH. BED RAILS UP. OXYGEN SATURATIONS 97% ON ROOM AIR.
--- NOTE | 2023-03-01 08:36 | NUR ---
MORNING ASSESSMENT AND MEDICATION DUE. PT RESTING IN BED, HEAD OF BED ELEVATED TO 53 DEGREES, PT EATING BREAKFAST. PT REPORTS SHE SAW DR. ARANA THIS MORNING, PT VERBALIZES UNDERSTANDING OF PLAN OF CARE AND REPEATS BACK INSTRUCTIONS FROM MD. IV SITE REMAINS WNL, NO S/S OF PHLEBITIS PRESENT. PT ALERT AND OREINTED TO ALL. LUNG SOUNDS CLEAR. PT TOLERATING ROOM AIR WITH OXYGEN SATURATIONS OVER 94% ON ROOM AIR. HEART TONES REGULAR. PT DENIES PAIN AND NAUSEA. HEART TONES PACED AND REGULAR. MEDICAITON GIVEN. BLE EDEMA RESOLVED. SPINAL RESOLVED. ABDOMEN SOFT AND NON TEDNER. BOWEL TONES ACTIVE. PT REPORTS SHE IS PASSING GAS. EDWARDS CATHETER NO LONGER IN PLACE, DC'D BY HAMMER OPERATOR. PT REMAINS DUE TO VOID. BLADD SCANNED, 134ML SEEN IN BLADDER BY SCAN AT THIS TIME. PO FLUIDS ENCOURAGED. SMALL AMOUNT OF RED DRAINAGE SEEN ON KIAH PAD. PT DENIES ADDITIONAL REQUESTS OR COMPLAINTS. EATING BREAKFAST. CALL LIGHT WITHIN REACH. BED RAILS UP.
--- NOTE | 2023-03-01 09:11 | NUR ---
MEDICATION DUE. GIVEN ORDERED. PT FINISHED WITH BREAKFAST. VITAL SIGNS STABLE. PT CONTIUES TO DENY PAIN AND NAUSEA. NO ADDITIONAL NEEDS AT THIS TIME. CALL LIGHT WITHIN REACH. BED RAILS UP.
[2023-03-01 09:12] VITALS: BP 151/73
--- NOTE | 2023-03-01 09:40 | NUR ---
PT CALLED FROM RESTROOM AFTER VOIDING. THIS CNA2 PERFORMED POST-RESIDULE SCAN ON BLADDER, COULD NOT FIND ANY URINE IN SCAN. PT STATED " I HAD QUITE A BIT OUT AND I ALSO HAD A GOOD SIZE BM." THERE WAS NOT A HAT IN THE TOILET SO WE WERE UNABLE TO GET AN ACCURATE MEASUREMENT. NEW HAT PLACED. NO OTHER NEEDS AT THIS TIME. CALL LIGHT IN REACH.
--- NOTE | 2023-03-01 09:54 | NUR ---
THIS RN TO ROOM TO CHECK ON PT. PT RESTING IN BED, SEMIFOWLER POSITION WITH HEAD OF BED AT 40 DEGREES. PT REPORTS SHE WAS UP TO RESTROOM TO VOID AND VOIDED "A LOT." HAT WAS NO IN TOILET SO VOID WAS UNMEASURED. HAT NOW IN TOILET. RETAIL CASHIER, TIA, REPORTS SHE DID A POST VOID RESIDUAL BLADDER SCAN WITH 0ML FOUND IN BLADDER. PT DENIES PAIN AND NAUSEA AT THIS TIME. CALL LIGHT WITHIN REACH. BED RAILS UP. NO ADDITIONAL REQUESTS OR COMPLAINTS.
--- NOTE | 2023-03-01 10:00 | NUR ---
Spoke with pt. She denies needs. Does not think she has voided enough for dc.
--- NOTE | 2023-03-01 11:10 | NUR ---
THIS RN TO ROOM TO CHECK ON PT. PT WATCHING TV AND RESTING IN BED, HEAD OF BED AT 40 DEGREES. PT RPEORTS /10 "DISCOMFORT" IN KIAH AREA/SURGICAL SITE. PT DENIES NEED FOR PAIN MEDICAITON AT THIS TIME. PT REPORTS SHE HAS HAND AN ADDITONAL VOID OF 150ML WITH POST VOID RESITUAL OF 241ML, MONITORING. PT DENIES ADDITIONAL REQUESTS OR COMPLAINTS. CALL LIGHT WITHIN REACH. BED RAILS UP.
[2023-03-01] MEDS ORDERED: POTASSIUM GLUCO99 MG PO (11:41)
[2023-03-01] MEDS ORDERED: TYLENOL325 MG PO (11:42)
[2023-03-01] MEDS ORDERED: APPLE CIDER VI500 MG PO (11:43)
--- NOTE | 2023-03-01 11:43 | NUR ---
MED REC COMPLETE
--- NOTE | 2023-03-01 12:22 | NUR ---
LUNCH DELIVERED TO PT. PT SITTING UP IN BED TO EAT. PT REPORTS ONGING 08/22 "DISCOMFORT" AND CONTINUES TO DECLINE PAIN MEDICAITON. PT CONTINUES TO VOID WITH ~33% TOTAL URINE REMAINGING IN BLADDER AFTER VOID. PT REPORTS "OH YEAH, I NEVER EMPTY AT HOME. WE WERE VIOLET HOPING THE SURGERY WOULD HELP WITH THAT." PT ENCOURAGED TO GIVE BLADDER LONGER TO EMPTY WHEN UP TO VOID RATHER THAN RUSHING BACK TO BED. PT EATING LUNCH. NO ADDITIONAL REQUESTS OR COMPLAINTS. CALL LIGHT WITHIN REACH. BED RAILS UP.
--- NOTE | 2023-03-01 13:08 | NUR ---
PT CALL LIGHT ON. PT VOIDS AND SITS ON THE TOILET FOR 5 MINTUES. PT VOIDS 250ML YELLOW URINE. STAND BY ASSIST BACK TO BED. PT STEADY ON FEET. POST VOID RESIDUAL BLADDER SCAN SHOWS 236ML LEFT IN BLADDER. DR. ARANA TO BEDSIDE AND DISCUSSES BLADDER TRANING WITH PT. PT ENCORUAGED TO GET UP TO VOID EVERY HOUR. PLANDS MADE FOR PT TO GET UP AGAIN AT 1400ML. PT DENIES PAIN AND NAUSEA. NO ADDITIONAL REQUESTS OR COMPLAINTS. CALL LIGHT WITHIN REACH. BED RAILS UP.
--- NOTE | 2023-03-01 13:13 | NUR ---
PT IN BED WITH TELEVISION ON. ALERT AND INTERACTIVE. APPEARED TO BE GENERALLY IN GOOD SPIRITS. STATED WAS FEELING WELL AND LOOKING FORWARD TO DISCHARGE. DENIED ANY NEEDS. CONSENTED TO PRAYER. PRAYED FOR ONGOING HEALING.
[2023-03-01 13:27] VITALS: BP 149/60
--- NOTE | 2023-03-01 13:47 | NUR ---
AFTERNOON ASSESSMENT AND MEDICATION DUE. PT UP TO RESTROOM WITH COLLAR WORKER. PT REPORTS SHE WAS TALKING ON THE PHONE WITH A FRIEND WHO "MADE ME LAUGH SO I HAD TO GO." PT VOIDS 400ML WITHOUT ISSUE. KIAH CARE PER PT. FRESH KIAH PAD AND MESH UNDERWARE PROVIDED. STAND BY ASSIST BACK TO BED. BLADDER SCAN SHOWS ONLY 17ML IN BLADDER. PT STATES "BECAUSE I WAS LAUGHING SO HARD. NO INCONTINANCE SEEN. SCANT RED DRAINAGE SEEN ON KIAH PAD, MINMAL DRAINAGE SEEN. ABDOMEN SOFT AND NON TEDNER. BOWEL TONES ACTIVE. PT REMAINS ALERT AND ORIENTED TO ALL. HEART TONES REGULAR, LUNG SOUNDS CLEAR. CPOX DC'D. PT CONTINUES ON VOIDING SCHEDULE. NO ADDITINOAL NEEDS AT THIS TIME. CALL LIGHT WITHIN REACH. BED RAILS UP.
--- NOTE | 2023-03-01 14:44 | NUR ---
PT UP TO RESTROOM WITH ASSISTANCE FROM CONVENTIONAL MORTGAGE UNDERWRITER. BATHROOM CALL LIGHT ON. KIAH CARE PER PT PT. SCANT RED DRAINAGE ON KIAH PAD. PT HAS VOIDED 150ML CLEAR YELLOW URINE. POST VOID RESIDUAL SCAN FINDS 42 ML LEFT IN BADDER. PT REPORTS 1/10 PAIN IN KIAH AREA. PT DENIES NEED FOR ADDITIONAL PAIN MEDICAITON. NO ADDITIONAL REQUESTS OR COMPLAINTS. CALL LIGHT WITHIN REACH.
--- NOTE | 2023-03-01 16:34 | NUR ---
THIS RN TO ROOM TO CHECK ONPT. PT REPORTS SHE WAS RECENTLY UP TO RESTROOM WITH LODE MINER TO VOID. PT DENIES NEED TO VOID AT THIS TIME. PT REPORTS PAIN REMAINS WELL CONTROLLED AT 08/22 AT THIS TIME. PT VISITING WITH HER DAUGHTER. NO ADDITIONAL REQUESTS OR COMPLAINTS. CALL LIGHT WITHIN REACH. BED RAILS UP.
--- NOTE | 2023-03-01 17:06 | NUR ---
PT POST OP DAY 1 AFTER COLPOCLEISIS AND CYSTOSCOPY. PT UP WITH STAND BY ASSIST TO RESTROOM THIS SHIFT. PT TOLERATING REGULAR DIET WITH GOOD APPITITE. PT ALERT AND OREINTED TO ALL. HEART TONES REGULAR. LUNG SOUNDS KAYLEE. ABDOMEN SOFT AND NON TENDER. SCHEDULED TYELNOL GIVEN FOR "DISCOMFORT" OF KIAH AREA, PT DENIES OPIOID MEDICATIONS. EDWARDS CATHETER DC'D, PT VOIDING, POST VOID RESIDUALS COMPLETED WITH INCONSISTANT EMPTYING OF BLADDER, AWARE. PT PLACED ON TOILETING SCHEDULE. SCANT RED DRAINAGE SEEN ON KIAH PAD. PT USES CALL LIGHT AND MAKES NEEDS KNOWN.
--- NOTE | 2023-03-01 17:19 | NUR ---
DINNER DELIVERED TO PT. PT EATING DINNER AND VISITING WITH DAUGHTER. PT DENIES PAIN AND NAUSEA. DR. ARANA CALLED AND UPDATED REGARDING PTS OUTPUT. DR. ARANA STATES TO GET PT UP AGAIN TO RESTROOM AND SEE WHAT ADDITIONAL SHE CAN VOID. PT UP TO RESTROOM WITH STAND BY ASSSIT. VOIDS AND ADDITIONAL 250ML. KIAH CARE PER PT. POST VOID RESIDUAL BLADDER SCAN OF 42ML. PT RETURNS TO EATING DINNER. DR. ARANA TO BEDSIDE AND UPDATED ON STATUS. DISCHARGE INSTRUCTIONS REVIEWED WITH PT BY DR. ARANA. PT RETURNS TO EATING DINNER. NO ADDITONAL NEEDS AT THIS TIME. BED RAILS UP. CALL LIGHT WITHIN REACH. APPLE JUICE PROVIDED PER PT REQUEST.
[2023-03-01] MEDS ORDERED: SENOKOT-S TABL1 EACH PO (17:59)
[2023-03-01 18:07] VITALS: BP 149/73
--- NOTE | 2023-03-01 18:35 | NUR ---
PT READY FOR DISCHARGE. PT DRESSES SELF, NO ASSISTANCE NEEDED. VITAL SIGNS STABLE. IV DC'D PER PROTOCOL. GAUZE AND COBAN APPLIED. DISCHRAGE INSTRUCTIONS REVIEWED WITH PT IN DETAIL. PT VERBALIZES UNDERTANDING OF MEDICATIONS, FOLLOW UP, ACTIVITY RESTRICTIONS AND WHEN TO CALL THE DOCTOR. PT REPEORTS HER QUESTIONS HAVE BEEN ANSWERED. PT TRANSFERES SELF TO WHEELCHAIR AND IS WHEELED FROM MED/SURG WITH BELONGINGS TO MEET HER DAUGHTER. NO ADDITIONAL REQUESTS OR CONCERNS.
== END 2023-03-01 18:30 | disposition home or self-care (01) | DRG 748 ==
LOC: DSVR 02-28 05:55 → MS 02-28 07:30
PROVIDERS: ADMIT Obstetrics & Gynecology; ATTEND Obstetrics & Gynecology
PROC: 0ULG8ZZ Occlusion of Vagina, Via Natural or Artificial Opening Endoscopic (ICD-10-PCS; principal; 2023-02-28 07:30)
DX: N99.3 Prolapse of vaginal vault after hysterectomy (principal); I48.20 Chronic atrial fibrillation, unspecified; E87.5 Hyperkalemia; E78.5 Hyperlipidemia, unspecified; E03.9 Hypothyroidism, unspecified; I12.9 Hypertensive chronic kidney disease with stage 1 through stage 4 chronic kidney disease, or unspecified chronic kidney disease; N39.46 Mixed incontinence; M81.0 Age-related osteoporosis without current pathological fracture; N18.31 Chronic kidney disease, stage 3a; L65.9 Nonscarring hair loss, unspecified; Z96.651 Presence of right artificial knee joint; Z98.41 Cataract extraction status, right eye; Z88.8 Allergy status to other drugs, medicaments and biological substances; Z90.710 Acquired absence of both cervix and uterus; Z90.49 Acquired absence of other specified parts of digestive tract; Z79.890 Hormone replacement therapy; Z88.5 Allergy status to narcotic agent; Z79.01 Long term (current) use of anticoagulants; Z79.899 Other long term (current) drug therapy; Z95.0 Presence of cardiac pacemaker
CPT/HCPCS: 00860; 36415; 80048; 85027; A9270; J0690; J1100; J1644; J2250; J2274; J2704; J7121

== ENCOUNTER 2024-01-25 12:21 | Emergency (ER) | payer MEDICARE, OTHER ==
[~2024-01-25] VITALS: Ht 165.1 cm; Wt 75.0 kg
[~2024-01-25 12:21] MED LIST changes: +AMLODIPINE BES2.5 MG PO; +APPLE CIDER VI500 MG PO; +LEVOTHYROXINE75 MCG PO; +LOSARTAN POTASS50 MG PO; +METOPROLOL TART25 MG PO; +POTASSIUM GLUCO99 MG PO; +SENOKOT-S TABL1 EACH PO; +TYLENOL325 MG PO
[2024-01-25] MEDS ORDERED: CYCLOBENZAPRINE10 MG PO (17:14)
[2024-01-25] MEDS ORDERED: CYCLOBENZAPRINE HCL 10 MG TAB PO ONE (17:15)
[2024-01-25 17:36] VITALS: BP 171/93
== END 2024-01-25 17:37 | disposition home or self-care (01) ==
LOC: ED 12:21
DX: M25.561 Pain in right knee (principal); M23.91 Unspecified internal derangement of right knee; M62.838 Other muscle spasm; Z96.651 Presence of right artificial knee joint; I10 Essential (primary) hypertension; E78.00 Pure hypercholesterolemia, unspecified; Z88.8 Allergy status to other drugs, medicaments and biological substances; Z88.5 Allergy status to narcotic agent; Z79.01 Long term (current) use of anticoagulants; Z79.890 Hormone replacement therapy; Z79.899 Other long term (current) drug therapy
CPT/HCPCS: 73560; 99283-25